=== PATIENT | female | born 1960 | race African-American/Black ===

== ENCOUNTER 2017-07-22 14:10 | Inpatient (IN) | payer OTHER ==
[~2017-07-22] VITALS: Ht 160 cm; Wt 91.5 kg
[~2017-07-22 14:10] MED LIST: GUAFACSF5L PO; HYDR-3965 PO; LISI-662 PO; METF500T4 PO; OMEP20 PO; RIVA15T PO; RIVA20TA PO
[2017-07-22] MEDS ORDERED: SODIUM CHLORIDE 0.9% 1,000 ML IV ONE ×3 (14:45→22:49)
[2017-07-22] MEDS ORDERED: ONDANSETRON HCL 4 MG/2 ML VIAL IVP ONE (14:45)
[2017-07-22] MEDS ORDERED: MORPHINE SULFATE 4 MG/ML SYRINGE IVP ONE ×2 (14:45→18:15)
[2017-07-22] MEDS ORDERED: BARIUM SULFATE 0.1% SUSPENSION 450 ML BOTTLE PO ONE (15:00)
[2017-07-22 16:20] LABS: EOSINOPHILS % (AUTO) 0 % (1.0-6.0); HEMATOCRIT 50.7 % (36-46); HEMOGLOBIN 16.7 g/dL (12.0-16.0); LYMPHOCYTES # (AUTO) 0.7 K/uL (1.0-4.8); LYMPHOCYTES % (AUTO) 4.9 % (22.0-44.0); MEAN CORPUSCULAR HEMOGLOBIN 28.4 pg (26.0-34.0); MEAN CORPUSCULAR VOLUME 86 fL (80-100); MONOCYTES # (AUTO) 0.8 K/uL (0.1-1.0); MONOCYTES % (AUTO) 5.1 % (2.0-9.0); NEUTROPHILS # (AUTO) 13.8 K/uL (1.8-7.7); RED CELL DISTRIBUTION WIDTH 15.7 % (11.5-14.5); WHITE BLOOD COUNT (AUTO) 15.3 K/uL (4.5-11.0)
[2017-07-22 16:22] LABS: ANION GAP 9 mmol/L (8-16); CALCIUM, TOTAL 9.1 mg/dL (8.8-10.5); CARBON DIOXIDE 33 mmol/L (22-29); CHLORIDE 97 mmol/L (98-107); CREATININE 0.96 mg/dL (0.60-1.30); GLOMERULAR FILTR. RATE CALC > 60 mL/min (>60); POTASSIUM 3.8 mmol/L (3.5-5.1); SODIUM SERUM 139 mmol/L (136-145); UREA NITROGEN, BLOOD 19 mg/dL (7-18)
[2017-07-22 16:28] LABS: ALANINE AMINOTRANSFERASE 46 U/L (12-78); ALBUMIN 3.5 g/dL (3.4-5.0); ASPARTATE AMINOTRANSFERASE 16 U/L (15-37); BILIRUBIN,TOTAL 0.5 mg/dL (0.1-1.0); TOTAL PROTEIN, SERUM 8.6 g/dL (6.4-8.2)
[2017-07-22 16:30] LABS: LACTIC ACID 1.6 mmol/L (0.4-2.0)
[2017-07-22 16:53] LABS: INR 1.1 (0.9-1.1); PROTHROMBIN TIME 11.3 SEC (9.4-11.6)
[2017-07-22] MEDS ORDERED: ONDANSETRON HCL 4 MG/2 ML VIAL IVP PRN (18:45)
[2017-07-22] MEDS ORDERED: 0.9% SODIUM CHLORIDE 10 ML SYRINGE IVP PRN (18:45)
[2017-07-22] MEDS ORDERED: ACETAMINOPHEN 325 MG TABLET PO PRN ×2 (18:45→20:30)
[2017-07-22 19:04] LABS: PLATELET COUNT (AUTO) 360 K/uL (150-450)
[2017-07-22 20:04] VITALS: BP 133/97
[2017-07-22] MEDS ORDERED: ZOLPIDEM TARTRATE 5 MG TABLET PO PRN (20:30)
[2017-07-22] MEDS ORDERED: ALBUTEROL SULFATE 2.5 MG/0.5 ML NEB SOLUTION NEB PRN (20:30)
[2017-07-22] MEDS ORDERED: BISACODYL 10 MG RECTAL RECTAL SUPPOSITORY PR PRN (20:30)
[2017-07-22] MEDS ORDERED: MAGNESIUM HYDROXIDE SUSPENSION 30 ML UDCUP PO PRN (20:30)
[2017-07-22] MEDS ORDERED: IPRATROPIUM BROMIDE 0.5 MG/2.5 ML NEB SOLUTION NEB PRN (20:30)
[2017-07-22] MEDS: DOCUSATE SODIUM 100 MG CAPSULE PO SCH (21:00)
[2017-07-22] MEDS: MORPHINE SULFATE 2 MG/ML SYRINGE IVP PRN (21:01)
[2017-07-22] MEDS ORDERED: DEXTROSE 50%-WATER 25 GM/50 ML SYRINGE IVP PRN (21:15)
[2017-07-22] MEDS ORDERED: RINGERS SOLUTION,LACTATED 0 ML IV ONE (22:05)
[2017-07-22] MEDS ORDERED: GUM MASTIC/STORAX/MSAL/ALCOHOL LIQUID 0.67 ML VIAL TP ONE (22:05)
[2017-07-22] MEDS ORDERED: BUPIVACAINE 0.25%/EPI 1:200,000/PF 10 ML VIAL ONE ×2 (22:05)
[2017-07-22 22:32] LABS: GLUCOSE COMMENT 1 Doctor Notified; GLUCOSE,POINT OF CARE 117 MG/DL (70-110)
[2017-07-22] MEDS ORDERED: BACITRACIN 50,000 UNITS/VIAL ONE (22:49)
[2017-07-22] MEDS ORDERED: SODIUM CHLORIDE 0.9% 10 ML ONE (22:49)
[2017-07-22] MEDS ORDERED: HYDROmorphone 2 MG/ML SYRINGE IVP PRN (23:00)
[2017-07-22] MEDS ORDERED: MEPERIDINE-PF 25 MG/ML SYRINGE IVP PRN (23:00)
[2017-07-22] MEDS ORDERED: FentaNYL CITRATE-PF 100 MCG/2 ML VIAL IVP PRN (23:00)
[2017-07-23] VITALS (7 sets, daily range): BP systolic 110–124; BP diastolic 67–83
[2017-07-23] MEDS ORDERED: HEPARIN SODIUM,PORCINE 5,000 UNITS/ML VIAL SQ SCH
[2017-07-23] MEDS: MORPHINE SULFATE 2 MG/ML SYRINGE IVP PRN ×6 (03:35→20:57)
[2017-07-23 06:03] LABS: GLUCOSE,POINT OF CARE 123 MG/DL (70-110)
[2017-07-23] MEDS ORDERED: PNEUMOCOCCAL VACCINE POLYVALENT 0.5 ML VIAL [PPSV23] IM ONE (07:00)
[2017-07-23 07:03] LABS: BASOPHILS % (AUTO) 0.1 % (0.0-2.0); EOSINOPHILS % (AUTO) 0.1 % (1.0-6.0); HEMATOCRIT 47.1 % (36-46); HEMOGLOBIN 15.5 g/dL (12.0-16.0); LYMPHOCYTES # (AUTO) 0.8 K/uL (1.0-4.8); LYMPHOCYTES % (AUTO) 8.7 % (22.0-44.0); MEAN CORPUSCULAR HEMOGLOBIN 28.5 pg (26.0-34.0); MEAN CORPUSCULAR HGB CONC 32.9 G/dL (31.0-37.0); MEAN CORPUSCULAR VOLUME 87 fL (80-100); MONOCYTES # (AUTO) 0.7 K/uL (0.1-1.0); MONOCYTES % (AUTO) 7.5 % (2.0-9.0); NEUTROPHILS % (AUTO) 83.6 % (40.0-70.0); RED BLOOD CELL COUNT(AUTO) 5.43 MIL/uL (4.00-5.20); RED CELL DISTRIBUTION WIDTH 15.1 % (11.5-14.5)
[2017-07-23 07:25] LABS: ALANINE AMINOTRANSFERASE 37 U/L (12-78); ANION GAP 9 mmol/L (8-16); ASPARTATE AMINOTRANSFERASE 16 U/L (15-37); BILIRUBIN,TOTAL 0.7 mg/dL (0.1-1.0); CALCIUM, TOTAL 8.2 mg/dL (8.8-10.5); CARBON DIOXIDE 31 mmol/L (22-29); CHLORIDE 101 mmol/L (98-107); CREATININE 1.09 mg/dL (0.60-1.30); GLOMERULAR FILTR. RATE CALC > 60 mL/min (>60); POTASSIUM 3.8 mmol/L (3.5-5.1); SODIUM SERUM 141 mmol/L (136-145); TOTAL PROTEIN, SERUM 7.3 g/dL (6.4-8.2); UREA NITROGEN, BLOOD 25 mg/dL (7-18)
[2017-07-23 07:41] LABS: WHITE BLOOD COUNT (AUTO) 17.4 K/uL (4.5-11.0)
[2017-07-23] MEDS: OXYGEN THERAPY IH SCH ×2 (08:00→20:58)
[2017-07-23 08:39] LABS: PLATELET COUNT (AUTO) 273 K/uL (150-450)
[2017-07-23 08:40] LABS: RBC MORPHOLOGY COMMENT NORMAL RBC MORPH
[2017-07-23] MEDS: PANTOPRAZOLE SODIUM 40 MG/VIAL IVP SCH (08:46)
[2017-07-23] MEDS ORDERED: SODIUM CHLORIDE 0.9% 1,000 ML IV ONE (12:18)
[2017-07-23 19:03] LABS: GLUCOSE,POINT OF CARE 112 MG/DL (70-110)
[2017-07-23 19:07] LABS: GLUCOSE,POINT OF CARE 115 MG/DL (70-110)
[2017-07-23] MEDS: ONDANSETRON HCL 4 MG/2 ML VIAL IVP PRN (20:06)
[2017-07-23] MEDS: DOCUSATE SODIUM 100 MG CAPSULE PO SCH (20:59)
[2017-07-23] MEDS: INSULIN ASPART 100 UNITS/ML SQ PRN (23:41)
[2017-07-23 23:47] LABS: GLUCOSE,POINT OF CARE 118 MG/DL (70-110)
[2017-07-24] VITALS (8 sets, daily range): BP systolic 115–129; BP diastolic 64–92
[2017-07-24] MEDS: MORPHINE SULFATE 2 MG/ML SYRINGE IVP PRN ×5 (03:39→20:39)
[2017-07-24] MEDS: ONDANSETRON HCL 4 MG/2 ML VIAL IVP PRN ×2 (03:46→09:58)
[2017-07-24] MEDS ORDERED: GLYCOPYRROLATE 0.2 MG/ML VIAL IM ONE (05:26)
[2017-07-24] MEDS ORDERED: NEOSTIGMINE METHYLSULFATE 1 MG/ML 10 ML VIAL IVP ONE (05:26)
[2017-07-24] MEDS ORDERED: CefoTEtan DISODIUM 1 GM/VIAL IVP ONE (05:26)
[2017-07-24] MEDS ORDERED: METOCLOPRAMIDE HCL 5 MG/ML 2 ML VIAL IVP ONE (05:26)
[2017-07-24] MEDS ORDERED: ONDANSETRON HCL 4 MG/2 ML VIAL IVP ONE (05:26)
[2017-07-24] MEDS ORDERED: PROPOFOL 1% 20 ML VIAL IVP ONE (05:26)
[2017-07-24] MEDS ORDERED: KETOROLAC TROMETHAMINE 60 MG/2 ML VIAL IM ONE (05:26)
[2017-07-24] MEDS ORDERED: LIDOCAINE HCL/PF 2% 5 ML VIAL IM ONE (05:26)
[2017-07-24] MEDS ORDERED: FentaNYL CITRATE-PF 100 MCG/2 ML VIAL IVP ONE (05:30)
[2017-07-24] MEDS ORDERED: MIDAZOLAM HCL 2 MG/2 ML VIAL IVP ONE (05:30)
[2017-07-24 05:55] LABS: BASOPHILS % (AUTO) 0.1 % (0.0-2.0); EOSINOPHILS % (AUTO) 0.2 % (1.0-6.0); HEMATOCRIT 45.6 % (36-46); LYMPHOCYTES # (AUTO) 1.1 K/uL (1.0-4.8); LYMPHOCYTES % (AUTO) 10.1 % (22.0-44.0); MEAN CORPUSCULAR HEMOGLOBIN 28.4 pg (26.0-34.0); MEAN CORPUSCULAR HGB CONC 32.8 G/dL (31.0-37.0); MEAN CORPUSCULAR VOLUME 86 fL (80-100); MONOCYTES # (AUTO) 0.9 K/uL (0.1-1.0); MONOCYTES % (AUTO) 7.6 % (2.0-9.0); NEUTROPHILS # (AUTO) 9.3 K/uL (1.8-7.7); RED BLOOD CELL COUNT(AUTO) 5.28 MIL/uL (4.00-5.20); RED CELL DISTRIBUTION WIDTH 15.1 % (11.5-14.5); WHITE BLOOD COUNT (AUTO) 11.4 K/uL (4.5-11.0)
[2017-07-24 06:07] LABS: ALANINE AMINOTRANSFERASE 33 U/L (12-78); ALBUMIN 2.8 g/dL (3.4-5.0); ANION GAP 1 mmol/L (8-16); ASPARTATE AMINOTRANSFERASE 11 U/L (15-37); BILIRUBIN,TOTAL 0.7 mg/dL (0.1-1.0); CALCIUM, TOTAL 8.7 mg/dL (8.8-10.5); CARBON DIOXIDE 35 mmol/L (22-29); CHLORIDE 100 mmol/L (98-107); CREATININE 0.83 mg/dL (0.60-1.30); GLOMERULAR FILTR. RATE CALC > 60 mL/min (>60); POTASSIUM 3.7 mmol/L (3.5-5.1); SODIUM SERUM 136 mmol/L (136-145); TOTAL PROTEIN, SERUM 7.3 g/dL (6.4-8.2); UREA NITROGEN, BLOOD 18 mg/dL (7-18)
[2017-07-24 07:02] LABS: GLUCOSE,POINT OF CARE 109 MG/DL (70-110)
[2017-07-24 07:57] LABS: PLATELET COUNT (AUTO) 313 K/uL (150-450)
[2017-07-24] MEDS: OXYGEN THERAPY IH SCH ×2 (08:00→20:00)
[2017-07-24] MEDS: DOCUSATE SODIUM 100 MG CAPSULE PO SCH ×2 (09:50→20:08)
[2017-07-24] MEDS: PANTOPRAZOLE SODIUM 40 MG/VIAL IVP SCH (09:50)
[2017-07-24 12:08] LABS: GLUCOSE,POINT OF CARE 127 MG/DL (70-110)
[2017-07-24] MEDS: LevETIRAcetam 500 MG in DEXTROSE 5%-WATER 100 ML IV SCH (16:07)
[2017-07-25] VITALS (7 sets, daily range): BP systolic 113–134; BP diastolic 74–79
[2017-07-25] MEDS: MORPHINE SULFATE 2 MG/ML SYRINGE IVP PRN ×5 (02:33→23:12)
[2017-07-25] MEDS: LevETIRAcetam 500 MG in DEXTROSE 5%-WATER 100 ML IV SCH ×2 (02:33→14:58)
[2017-07-25] MEDS: ONDANSETRON HCL 4 MG/2 ML VIAL IVP PRN ×2 (02:38→09:24)
[2017-07-25 06:05] LABS: BASOPHILS # (AUTO) 0.02 K/uL (0.00-0.20); BASOPHILS % (AUTO) 0.2 % (0.0-2.0); EOSINOPHILS # (AUTO) 0.03 K/uL (0.00-0.70); EOSINOPHILS % (AUTO) 0.38 % (1.0-6.0); HEMATOCRIT 47.4 % (36-46); HEMOGLOBIN 15.2 g/dL (12.0-16.0); LYMPHOCYTES # (AUTO) 0.9 K/uL (1.0-4.8); LYMPHOCYTES % (AUTO) 11.1 % (22.0-44.0); MEAN CORPUSCULAR HEMOGLOBIN 27.9 pg (26.0-34.0); MEAN CORPUSCULAR HGB CONC 32.1 G/dL (31.0-37.0); MEAN CORPUSCULAR VOLUME 87 fL (80-100); MONOCYTES # (AUTO) 0.9 K/uL (0.1-1.0); MONOCYTES % (AUTO) 11.5 % (2.0-9.0); NEUTROPHILS # (AUTO) 6.3 K/uL (1.8-7.7); NEUTROPHILS % (AUTO) 76.9 % (40.0-70.0); RED BLOOD CELL COUNT(AUTO) 5.45 MIL/uL (4.00-5.20); RED CELL DISTRIBUTION WIDTH 15.3 % (11.5-14.5); WHITE BLOOD COUNT (AUTO) 8.2 K/uL (4.5-11.0)
[2017-07-25 06:17] LABS: ALANINE AMINOTRANSFERASE 27 U/L (12-78); ALBUMIN 2.5 g/dL (3.4-5.0); ANION GAP 4 mmol/L (8-16); ASPARTATE AMINOTRANSFERASE 15 U/L (15-37); BILIRUBIN,TOTAL 0.8 mg/dL (0.1-1.0); CARBON DIOXIDE 37 mmol/L (22-29); CHLORIDE 97 mmol/L (98-107); CREATININE 1.02 mg/dL (0.60-1.30); GLOMERULAR FILTR. RATE CALC > 60 mL/min (>60); SODIUM SERUM 138 mmol/L (136-145); TOTAL PROTEIN, SERUM 7.5 g/dL (6.4-8.2); UREA NITROGEN, BLOOD 22 mg/dL (7-18)
[2017-07-25] MEDS ORDERED: SODIUM CHLORIDE 0.9% 250 ML IV ONE (06:23)
[2017-07-25 07:05] LABS: PLATELET COUNT (AUTO) 294 K/uL (150-450)
[2017-07-25 07:18] LABS: GLUCOSE,POINT OF CARE 165 MG/DL (70-110)
[2017-07-25 07:18] LABS: GLUCOSE,POINT OF CARE 136 MG/DL (70-110)
[2017-07-25 07:18] LABS: GLUCOSE,POINT OF CARE 141 MG/DL (70-110)
[2017-07-25] MEDS: PANTOPRAZOLE SODIUM 40 MG/VIAL IVP SCH (08:02)
[2017-07-25] MEDS: OXYGEN THERAPY IH SCH ×2 (08:09→21:26)
[2017-07-25] MEDS: DOCUSATE SODIUM 100 MG CAPSULE PO SCH ×2 (08:13→21:00)
[2017-07-25 11:48] LABS: GLUCOSE,POINT OF CARE 202 MG/DL (70-110)
[2017-07-25] MEDS: INSULIN ASPART 100 UNITS/ML SQ PRN ×2 (12:05→18:05)
[2017-07-25 16:02] LABS: GLUCOSE,POINT OF CARE 122 MG/DL (70-110)
[2017-07-26] MEDS: ONDANSETRON HCL 4 MG/2 ML VIAL IVP PRN ×4 (01:38→23:28)
[2017-07-26] MEDS: LevETIRAcetam 500 MG in DEXTROSE 5%-WATER 100 ML IV SCH ×2 (01:38→14:46)
[2017-07-26 04:02] VITALS: BP 123/77
[2017-07-26] MEDS: MORPHINE SULFATE 2 MG/ML SYRINGE IVP PRN ×6 (04:40→23:28)
[2017-07-26 06:14] LABS: ALANINE AMINOTRANSFERASE 31 U/L (12-78); ALBUMIN 2.5 g/dL (3.4-5.0); ANION GAP 4 mmol/L (8-16); ASPARTATE AMINOTRANSFERASE 14 U/L (15-37); BILIRUBIN,TOTAL 0.6 mg/dL (0.1-1.0); CALCIUM, TOTAL 8.9 mg/dL (8.8-10.5); CARBON DIOXIDE 38 mmol/L (22-29); CHLORIDE 94 mmol/L (98-107); GLOMERULAR FILTR. RATE CALC > 60 mL/min (>60); POTASSIUM 3.6 mmol/L (3.5-5.1); SODIUM SERUM 136 mmol/L (136-145); TOTAL PROTEIN, SERUM 7.8 g/dL (6.4-8.2); UREA NITROGEN, BLOOD 25 mg/dL (7-18)
[2017-07-26 07:06] LABS: EOSINOPHILS % (AUTO) 0.87 % (1.0-6.0); HEMATOCRIT 45.6 % (36-46); HEMOGLOBIN 14.6 g/dL (12.0-16.0); LYMPHOCYTES # (AUTO) 1.2 K/uL (1.0-4.8); LYMPHOCYTES % (AUTO) 11.1 % (22.0-44.0); MEAN CORPUSCULAR HEMOGLOBIN 27.8 pg (26.0-34.0); MEAN CORPUSCULAR HGB CONC 32.1 G/dL (31.0-37.0); MEAN CORPUSCULAR VOLUME 87 fL (80-100); MONOCYTES # (AUTO) 1.3 K/uL (0.1-1.0); MONOCYTES % (AUTO) 11.7 % (2.0-9.0); NEUTROPHILS # (AUTO) 8.4 K/uL (1.8-7.7); NEUTROPHILS % (AUTO) 76.3 % (40.0-70.0); PLATELET COUNT (AUTO) 239 K/uL (150-450); RED BLOOD CELL COUNT(AUTO) 5.26 MIL/uL (4.00-5.20); RED CELL DISTRIBUTION WIDTH 14.9 % (11.5-14.5); WHITE BLOOD COUNT (AUTO) 12.9 K/uL (4.5-11.0)
[2017-07-26 07:20] VITALS: BP 131/89
[2017-07-26 08:29] LABS: RBC MORPHOLOGY COMMENT ABNORMAL RBC MORPH
[2017-07-26] MEDS: PANTOPRAZOLE SODIUM 40 MG/VIAL IVP SCH (08:33)
[2017-07-26] MEDS: DOCUSATE SODIUM 100 MG CAPSULE PO SCH ×2 (08:34→19:37)
[2017-07-26] MEDS: OXYGEN THERAPY IH SCH ×2 (08:44→19:36)
[2017-07-26 11:29] VITALS: BP 114/65
[2017-07-26] MEDS: INSULIN ASPART 100 UNITS/ML SQ PRN (12:28)
[2017-07-26 16:20] VITALS: BP 115/73
[2017-07-26 19:52] VITALS: BP 118/80
[2017-07-27] VITALS (8 sets, daily range): BP systolic 93–136; BP diastolic 56–89
[2017-07-27] MEDS: MORPHINE SULFATE 2 MG/ML SYRINGE IVP PRN ×6 (02:57→20:35)
[2017-07-27] MEDS: LevETIRAcetam 500 MG in DEXTROSE 5%-WATER 100 ML IV SCH ×2 (03:00→13:21)
[2017-07-27] MEDS: ONDANSETRON HCL 4 MG/2 ML VIAL IVP PRN ×3 (06:05→17:47)
[2017-07-27] MEDS: INSULIN ASPART 100 UNITS/ML SQ PRN (06:06)
[2017-07-27 07:12] LABS: BASOPHILS % (AUTO) 0.1 % (0.0-2.0); EOSINOPHILS % (AUTO) 0.9 % (1.0-6.0); HEMATOCRIT 47.2 % (36-46); HEMOGLOBIN 15.6 g/dL (12.0-16.0); LYMPHOCYTES # (AUTO) 1.6 K/uL (1.0-4.8); LYMPHOCYTES % (AUTO) 13.1 % (22.0-44.0); MEAN CORPUSCULAR HEMOGLOBIN 28.3 pg (26.0-34.0); MEAN CORPUSCULAR HGB CONC 33.1 G/dL (31.0-37.0); MEAN CORPUSCULAR VOLUME 86 fL (80-100); MONOCYTES # (AUTO) 1.4 K/uL (0.1-1.0); MONOCYTES % (AUTO) 11.6 % (2.0-9.0); NEUTROPHILS # (AUTO) 9.2 K/uL (1.8-7.7); NEUTROPHILS % (AUTO) 74.3 % (40.0-70.0); RED BLOOD CELL COUNT(AUTO) 5.51 MIL/uL (4.00-5.20); WHITE BLOOD COUNT (AUTO) 12.4 K/uL (4.5-11.0)
[2017-07-27 07:16] LABS: ALANINE AMINOTRANSFERASE 72 U/L (12-78); ALBUMIN 2.8 g/dL (3.4-5.0); ANION GAP 4 mmol/L (8-16); ASPARTATE AMINOTRANSFERASE 38 U/L (15-37); BILIRUBIN,TOTAL 0.6 mg/dL (0.1-1.0); CALCIUM, TOTAL 9.2 mg/dL (8.8-10.5); CARBON DIOXIDE 39 mmol/L (22-29); CHLORIDE 91 mmol/L (98-107); CREATININE 1.08 mg/dL (0.60-1.30); GLOMERULAR FILTR. RATE CALC > 60 mL/min (>60); POTASSIUM 3.6 mmol/L (3.5-5.1); SODIUM SERUM 134 mmol/L (136-145); UREA NITROGEN, BLOOD 29 mg/dL (7-18)
[2017-07-27] MEDS: PANTOPRAZOLE SODIUM 40 MG/VIAL IVP SCH (08:15)
[2017-07-27] MEDS: DOCUSATE SODIUM 100 MG CAPSULE PO SCH ×2 (08:15→20:32)
[2017-07-27 09:46] LABS: PLATELET COUNT (AUTO) 253 K/uL (150-450)
[2017-07-27 18:18] LABS: GLUCOSE,POINT OF CARE 143 MG/DL (70-110)
[2017-07-27 18:18] LABS: GLUCOSE,POINT OF CARE 147 MG/DL (70-110)
[2017-07-27 18:18] LABS: GLUCOSE,POINT OF CARE 129 MG/DL (70-110)
[2017-07-27 18:18] LABS: GLUCOSE,POINT OF CARE 138 MG/DL (70-110)
[2017-07-27 19:08] LABS: GLUCOSE,POINT OF CARE 125 MG/DL (70-110)
[2017-07-27 19:08] LABS: GLUCOSE COMMENT 1 Received Meds; GLUCOSE,POINT OF CARE 148 MG/DL (70-110)
[2017-07-27 19:08] LABS: GLUCOSE COMMENT 1 Received Meds; GLUCOSE,POINT OF CARE 154 MG/DL (70-110)
[2017-07-27] MEDS: OXYGEN THERAPY IH SCH (20:36)
[2017-07-28] VITALS (7 sets, daily range): BP systolic 110–131; BP diastolic 62–91
[2017-07-28] MEDS: ONDANSETRON HCL 4 MG/2 ML VIAL IVP PRN ×2 (01:00→19:22)
[2017-07-28] MEDS: MORPHINE SULFATE 2 MG/ML SYRINGE IVP PRN ×3 (01:01→21:06)
[2017-07-28] MEDS: LevETIRAcetam 500 MG in DEXTROSE 5%-WATER 100 ML IV SCH ×2 (01:57→13:36)
[2017-07-28] MEDS: OXYGEN THERAPY IH SCH ×3 (01:59→20:06)
[2017-07-28 06:41] LABS: BASOPHILS # (AUTO) 0.06 K/uL (0.00-0.20); BASOPHILS % (AUTO) 0.4 % (0.0-2.0); EOSINOPHILS # (AUTO) 0.03 K/uL (0.00-0.70); EOSINOPHILS % (AUTO) 0.23 % (1.0-6.0); HEMATOCRIT 52.2 % (36-46); HEMOGLOBIN 16.8 g/dL (12.0-16.0); LYMPHOCYTES # (AUTO) 2.2 K/uL (1.0-4.8); LYMPHOCYTES % (AUTO) 16.3 % (22.0-44.0); MEAN CORPUSCULAR HEMOGLOBIN 27.8 pg (26.0-34.0); MEAN CORPUSCULAR HGB CONC 32.1 G/dL (31.0-37.0); MEAN CORPUSCULAR VOLUME 87 fL (80-100); MONOCYTES # (AUTO) 1.5 K/uL (0.1-1.0); MONOCYTES % (AUTO) 11.2 % (2.0-9.0); NEUTROPHILS # (AUTO) 9.5 K/uL (1.8-7.7); NEUTROPHILS % (AUTO) 71.9 % (40.0-70.0); RED BLOOD CELL COUNT(AUTO) 6.02 MIL/uL (4.00-5.20); RED CELL DISTRIBUTION WIDTH 14.9 % (11.5-14.5)
[2017-07-28 06:51] LABS: ALBUMIN 2.7 g/dL (3.4-5.0); BILIRUBIN,TOTAL 0.9 mg/dL (0.1-1.0); CALCIUM, TOTAL 8.9 mg/dL (8.8-10.5); CREATININE 1.58 mg/dL (0.60-1.30); POTASSIUM 3.2 mmol/L (3.5-5.1); TOTAL PROTEIN, SERUM 8.2 g/dL (6.4-8.2)
[2017-07-28 07:01] LABS: PLATELET COUNT (AUTO) 298 K/uL (150-450)
[2017-07-28] MEDS ORDERED: POTASSIUM CHLORIDE 10% 40 MEQ/30 ML LIQUID UDCUP PO ONE (07:30)
[2017-07-28] MEDS ORDERED: DEXTROSE 5%-0.9% SODIUM CHL 1,000 ML IV SCH (07:30)
[2017-07-28] MEDS ORDERED: POTASSIUM CHL 10 MEQ/WATER 50 ML IV ONE (07:30)
[2017-07-28] MEDS: DOCUSATE SODIUM 100 MG CAPSULE PO SCH ×2 (09:00→20:06)
[2017-07-28] MEDS: PANTOPRAZOLE SODIUM 40 MG/VIAL IVP SCH (09:01)
[2017-07-28] MEDS: LACTULOSE 20 GM/30 ML SOLUTION UDCUP PO SCH ×2 (09:02→20:05)
[2017-07-28] MEDS: BISACODYL 10 MG RECTAL RECTAL SUPPOSITORY PR SCH (09:04)
[2017-07-28] MEDS: HEPARIN SODIUM,PORCINE 5,000 UNITS/ML VIAL SQ SCH ×2 (09:05→16:00)
[2017-07-28] MEDS: SERTRALINE HCL 50 MG TABLET PO SCH (10:30)
[2017-07-28] MEDS: POTASSIUM CHL 20 MEQ/D5-NS 1,000 ML IV SCH ×2 (11:39→20:07)
[2017-07-28] MEDS: PIPERACILLIN SODIUM/TAZOBACTAM 2.25 GM in DEXTROSE 5%-WATER 50 ML IV SCH ×2 (14:51→20:06)
[2017-07-28 15:48] LABS: ABG A-A DIFF O2 89.8 mmHg (10-20.0); ABG BASE EXCESS 24.5 mmol/L (-2.0-3.0); ABG HCO3 44.1 mmol/L (22.0-26.0); ABG PCO2 66 mmHg (35-45); ABG PH 7.481 (7.35-7.450); TEMPERATURE, FAHRENHEIT, BG 98.6 FAHREN (96.0-98.6)
[2017-07-28 15:49] LABS: ALLEN TEST, BLOOD GAS Positive
[2017-07-28 19:58] LABS: GLUCOSE,POINT OF CARE 178 MG/DL (70-110)
[2017-07-28 20:02] LABS: GLUCOSE COMMENT 1 Received Meds; GLUCOSE,POINT OF CARE 155 MG/DL (70-110)
[2017-07-28] MEDS: TraZODone HCL 50 MG TABLET PO SCH (20:06)
[2017-07-29] VITALS (7 sets, daily range): BP systolic 108–124; BP diastolic 61–79
[2017-07-29] MEDS: LevETIRAcetam 500 MG in DEXTROSE 5%-WATER 100 ML IV SCH ×2 (01:14→14:03)
[2017-07-29] MEDS: HEPARIN SODIUM,PORCINE 5,000 UNITS/ML VIAL SQ SCH ×4 (01:14→23:12)
[2017-07-29] MEDS: POTASSIUM CHL 20 MEQ/D5-NS 1,000 ML IV SCH (01:15)
[2017-07-29] MEDS: PIPERACILLIN SODIUM/TAZOBACTAM 2.25 GM in DEXTROSE 5%-WATER 50 ML IV SCH ×2 (01:54→09:01)
[2017-07-29] MEDS: MORPHINE SULFATE 2 MG/ML SYRINGE IVP PRN ×5 (06:35→23:14)
[2017-07-29] MEDS: ONDANSETRON HCL 4 MG/2 ML VIAL IVP PRN (06:35)
[2017-07-29 08:16] LABS: BASOPHILS % (AUTO) 0.3 % (0.0-2.0); EOSINOPHILS % (AUTO) 1.1 % (1.0-6.0); HEMATOCRIT 45.1 % (36-46); HEMOGLOBIN 14.9 g/dL (12.0-16.0); LYMPHOCYTES % (AUTO) 9.9 % (22.0-44.0); MEAN CORPUSCULAR HGB CONC 33.1 G/dL (31.0-37.0); MEAN CORPUSCULAR VOLUME 85 fL (80-100); MONOCYTES # (AUTO) 0.6 K/uL (0.1-1.0); MONOCYTES % (AUTO) 5.5 % (2.0-9.0); NEUTROPHILS # (AUTO) 8.6 K/uL (1.8-7.7); NEUTROPHILS % (AUTO) 83.2 % (40.0-70.0); RED BLOOD CELL COUNT(AUTO) 5.32 MIL/uL (4.00-5.20); RED CELL DISTRIBUTION WIDTH 14.9 % (11.5-14.5); WHITE BLOOD COUNT (AUTO) 10.4 K/uL (4.5-11.0)
[2017-07-29 08:30] LABS: ALANINE AMINOTRANSFERASE 138 U/L (12-78); ALBUMIN 2.3 g/dL (3.4-5.0); ANION GAP 2 mmol/L (8-16); ASPARTATE AMINOTRANSFERASE 39 U/L (15-37); BILIRUBIN,TOTAL 0.7 mg/dL (0.1-1.0); CALCIUM, TOTAL 7.8 mg/dL (8.8-10.5); CHLORIDE 87 mmol/L (98-107); CREATININE 0.99 mg/dL (0.60-1.30); GLOMERULAR FILTR. RATE CALC > 60 mL/min (>60); SODIUM SERUM 131 mmol/L (136-145); TOTAL PROTEIN, SERUM 6.6 g/dL (6.4-8.2); UREA NITROGEN, BLOOD 42 mg/dL (7-18)
[2017-07-29 08:34] LABS: CARBON DIOXIDE 42 mmol/L (22-29)
[2017-07-29] MEDS: OXYGEN THERAPY IH SCH ×2 (08:59→19:39)
[2017-07-29] MEDS: DOCUSATE SODIUM 100 MG CAPSULE PO SCH ×2 (09:00→19:38)
[2017-07-29] MEDS: LACTULOSE 20 GM/30 ML SOLUTION UDCUP PO SCH ×2 (09:00→19:38)
[2017-07-29] MEDS: SERTRALINE HCL 50 MG TABLET PO SCH (09:00)
[2017-07-29] MEDS: PANTOPRAZOLE SODIUM 40 MG/VIAL IVP SCH (09:00)
[2017-07-29 09:12] LABS: PLATELET COUNT (AUTO) 330 K/uL (150-450)
[2017-07-29] MEDS: POTASSIUM CHLORIDE 40 MEQ in SODIUM CHLORIDE 0.9% 1,000 ML IV SCH (10:40)
[2017-07-29] MEDS ORDERED: KETO5DRO6 OS (13:06)
[2017-07-29] MEDS ORDERED: [UNRECOGNIZED DRUG - CODE] OS (13:06)
[2017-07-29] MEDS: PIPERACILLIN/TAZO 3.375 GM/D5W 50 ML IV SCH ×2 (14:10→19:38)
[2017-07-29] MEDS: TraZODone HCL 50 MG TABLET PO SCH (19:38)
[2017-07-29] MEDS ORDERED: [UNRECOGNIZED DRUG - OTHER] OS SCH (21:00)
[2017-07-29] MEDS: MINERAL OIL/PETROLATUM,WHITE PF 3.5 GM OPHTHALMIC OINTMENT OS SCH (23:12)
[2017-07-30] VITALS (7 sets, daily range): BP systolic 112–133; BP diastolic 60–77
[2017-07-30] MEDS: PIPERACILLIN/TAZO 3.375 GM/D5W 50 ML IV SCH ×4 (03:45→21:33)
[2017-07-30] MEDS: LevETIRAcetam 500 MG in DEXTROSE 5%-WATER 100 ML IV SCH ×2 (03:45→15:04)
[2017-07-30] MEDS: MORPHINE SULFATE 2 MG/ML SYRINGE IVP PRN ×4 (03:50→14:12)
[2017-07-30] MEDS: POTASSIUM CHLORIDE 40 MEQ in SODIUM CHLORIDE 0.9% 1,000 ML IV SCH (06:02)
[2017-07-30] MEDS: OXYGEN THERAPY IH SCH ×2 (08:35→21:42)
[2017-07-30] MEDS: LACTULOSE 20 GM/30 ML SOLUTION UDCUP PO SCH ×3 (08:35→21:00)
[2017-07-30] MEDS: HEPARIN SODIUM,PORCINE 5,000 UNITS/ML VIAL SQ SCH ×2 (08:36→16:03)
[2017-07-30] MEDS: SERTRALINE HCL 50 MG TABLET PO SCH (08:36)
[2017-07-30] MEDS: PANTOPRAZOLE SODIUM 40 MG/VIAL IVP SCH (08:36)
[2017-07-30] MEDS: MINERAL OIL/PETROLATUM,WHITE PF 3.5 GM OPHTHALMIC OINTMENT OS SCH ×3 (08:36→20:50)
[2017-07-30] MEDS: DOCUSATE SODIUM 100 MG CAPSULE PO SCH ×2 (08:36→20:51)
[2017-07-30] MEDS: BISACODYL 10 MG RECTAL RECTAL SUPPOSITORY PR SCH (08:36)
[2017-07-30] MEDS: ONDANSETRON HCL 4 MG/2 ML VIAL IVP PRN ×2 (11:19→21:33)
[2017-07-30 14:20] LABS: ANION GAP 0 mmol/L (8-16); CALCIUM, TOTAL 8.2 mg/dL (8.8-10.5); CARBON DIOXIDE 37 mmol/L (22-29); CHLORIDE 95 mmol/L (98-107); CREATININE 0.88 mg/dL (0.60-1.30); GLOMERULAR FILTR. RATE CALC > 60 mL/min (>60); POTASSIUM 4.4 mmol/L (3.5-5.1); SODIUM SERUM 132 mmol/L (136-145); UREA NITROGEN, BLOOD 16 mg/dL (7-18)
[2017-07-30] MEDS: METOCLOPRAMIDE HCL 5 MG/ML 2 ML VIAL IVP SCH (17:34)
[2017-07-30] MEDS: TraZODone HCL 50 MG TABLET PO SCH (20:51)
[2017-07-30 21:07] LABS: GLUCOSE,POINT OF CARE 108 MG/DL (70-110)
[2017-07-30] MEDS ORDERED: SODIUM CHLORIDE 0.9% 250 ML IV ONE (21:50)
[2017-07-31] MEDS: METOCLOPRAMIDE HCL 5 MG/ML 2 ML VIAL IVP SCH ×4 (00:45→12:39)
[2017-07-31] MEDS: HEPARIN SODIUM,PORCINE 5,000 UNITS/ML VIAL SQ SCH ×3 (00:46→16:46)
[2017-07-31] MEDS: LevETIRAcetam 500 MG in DEXTROSE 5%-WATER 100 ML IV SCH ×2 (01:30→15:02)
[2017-07-31 02:17] LABS: GLUCOSE COMMENT 1 Juice/Food/D50 Given; GLUCOSE,POINT OF CARE 103 MG/DL (70-110)
[2017-07-31] MEDS: PIPERACILLIN/TAZO 3.375 GM/D5W 50 ML IV SCH ×4 (02:46→20:43)
[2017-07-31] MEDS: MORPHINE SULFATE 2 MG/ML SYRINGE IVP PRN ×2 (03:40→12:53)
[2017-07-31 04:10] VITALS: BP 129/72
[2017-07-31 07:23] LABS: GLUCOSE COMMENT 1 Juice/Food/D50 Given; GLUCOSE,POINT OF CARE 130 MG/DL (70-110)
[2017-07-31 07:55] VITALS: BP 133/82
[2017-07-31] MEDS: PANTOPRAZOLE SODIUM 40 MG/VIAL IVP SCH (08:31)
[2017-07-31] MEDS: DOCUSATE SODIUM 100 MG CAPSULE PO SCH ×2 (08:31→21:00)
[2017-07-31] MEDS: SERTRALINE HCL 50 MG TABLET PO SCH (10:16)
[2017-07-31] MEDS: MINERAL OIL/PETROLATUM,WHITE PF 3.5 GM OPHTHALMIC OINTMENT OS SCH ×3 (10:16→20:43)
[2017-07-31 12:04] LABS: GLUCOSE,POINT OF CARE 102 MG/DL (70-110)
[2017-07-31 15:37] VITALS: BP 120/73
[2017-07-31] MEDS: HYDROCODONE/ACETAMINOPHEN 5-325 MG TABLET PO PRN ×2 (16:53→20:55)
[2017-07-31 19:28] VITALS: BP 120/70
[2017-07-31] MEDS: OXYGEN THERAPY IH SCH (20:00)
[2017-07-31 20:18] LABS: GLUCOSE,POINT OF CARE 111 MG/DL (70-110)
[2017-07-31] MEDS: TraZODone HCL 50 MG TABLET PO SCH (21:00)
[2017-07-31] MEDS: ONDANSETRON HCL 4 MG/2 ML VIAL IVP PRN (21:19)
[2017-08-01 00:14] VITALS: BP 124/71
[2017-08-01 01:08] LABS: GLUCOSE COMMENT 1 Juice/Food/D50 Given; GLUCOSE,POINT OF CARE 98 MG/DL (70-110)
[2017-08-01] MEDS: LevETIRAcetam 500 MG in DEXTROSE 5%-WATER 100 ML IV SCH ×2 (01:08→13:51)
[2017-08-01] MEDS: PIPERACILLIN/TAZO 3.375 GM/D5W 50 ML IV SCH ×3 (01:08→14:34)
[2017-08-01] MEDS: HEPARIN SODIUM,PORCINE 5,000 UNITS/ML VIAL SQ SCH ×3 (03:15→16:00)
[2017-08-01] MEDS: HYDROCODONE/ACETAMINOPHEN 5-325 MG TABLET PO PRN ×3 (03:19→16:51)
[2017-08-01 05:21] VITALS: BP 114/71
[2017-08-01 08:02] VITALS: BP 127/75
[2017-08-01] MEDS: OXYGEN THERAPY IH SCH (08:27)
[2017-08-01] MEDS: SERTRALINE HCL 50 MG TABLET PO SCH ×2 (08:27→08:32)
[2017-08-01] MEDS: PANTOPRAZOLE SODIUM 40 MG/VIAL IVP SCH (08:27)
[2017-08-01] MEDS: METOCLOPRAMIDE HCL 5 MG/ML 2 ML VIAL IVP SCH ×3 (08:27→12:00)
[2017-08-01] MEDS: BISACODYL 10 MG RECTAL RECTAL SUPPOSITORY PR SCH (08:28)
[2017-08-01] MEDS: MINERAL OIL/PETROLATUM,WHITE PF 3.5 GM OPHTHALMIC OINTMENT OS SCH ×2 (08:28→16:00)
[2017-08-01] MEDS: DOCUSATE SODIUM 100 MG CAPSULE PO SCH (08:28)
[2017-08-01 08:47] LABS: GLUCOSE COMMENT 1 Juice/Food/D50 Given; GLUCOSE,POINT OF CARE 136 MG/DL (70-110)
[2017-08-01 11:32] VITALS: BP 120/67
[2017-08-01 11:58] LABS: GLUCOSE,POINT OF CARE 103 MG/DL (70-110)
[2017-08-01] MEDS ORDERED: LEVE500T53 PO ×2 (14:18)
[2017-08-01] MEDS ORDERED: METR500 PO ×2 (14:19→14:20)
[2017-08-01] MEDS ORDERED: BISA5TAB12 PO (14:20)
[2017-08-01] MEDS ORDERED: BISA10S PR (14:22)
[2017-08-01] MEDS ORDERED: METO5TAB95 PO (14:23)
[2017-08-01 15:10] VITALS: BP 122/66
== END 2017-08-01 17:10 | disposition home or self-care (01) | DRG 228 ==
LOC: EDUNIT# 14:10 → EMS 14:11 → 4E 19:35 → 5N 07-24 15:30 → 6N 07-30 17:00
PROVIDERS: ADMIT Hospitalist; ATTEND Hospitalist
PROC: 0WUF4JZ Supplement Abdominal Wall with Synthetic Substitute, Percutaneous Endoscopic Approach (ICD-10-PCS; principal; 2017-07-23)
PROC: 0WJG4ZZ Inspection of Peritoneal Cavity, Percutaneous Endoscopic Approach (ICD-10-PCS; 2017-07-23)
DX: K42.0 Umbilical hernia with obstruction, without gangrene (principal); F33.2 Major depressive disorder, recurrent severe without psychotic features; R56.9 Unspecified convulsions; K56.7 Ileus, unspecified; I10 Essential (primary) hypertension; E11.9 Type 2 diabetes mellitus without complications; D72.829 Elevated white blood cell count, unspecified; K91.89 Other postprocedural complications and disorders of digestive system; K43.6 Other and unspecified ventral hernia with obstruction, without gangrene; E87.6 Hypokalemia; H40.9 Unspecified glaucoma; K21.9 Gastro-esophageal reflux disease without esophagitis; K66.0 Peritoneal adhesions (postprocedural) (postinfection); R33.9 Retention of urine, unspecified; Z53.20 Procedure and treatment not carried out because of patient's decision for unspecified reasons; Z86.718 Personal history of other venous thrombosis and embolism; Z87.891 Personal history of nicotine dependence; Z88.8 Allergy status to other drugs, medicaments and biological substances; Z91.02 Food additives allergy status; Z91.011 Allergy to milk products; Z22.322 Carrier or suspected carrier of Methicillin resistant Staphylococcus aureus; Z28.21 Immunization not carried out because of patient refusal
CPT/HCPCS: 74000; 74022; 74176; 82805; 82962; 83605; 86850; 86900; 86901; 87081; 88304; 90471; 93970; 94640; 96374; 96375; 96376; 97110; 97162; 97166; 97530; 97535; 99285; C9113; G0238; J0712; J1644; J1885; J2250; J2270; J2405; J2543; J2704; J2765; J3010; J3480; J3490; J7030; J7050; J7060; J7120

== ENCOUNTER 2017-08-07 03:12 | Emergency (ER) | payer OTHER ==
[~2017-08-07] VITALS: Ht 154.9 cm; Wt 91.1 kg
[~2017-08-07 03:12] MED LIST changes: +BISA10S PR; +KETO5DRO6 OS; +LEVE500T53 PO; +METO5TAB95 PO; +METR500 PO; -RIVA15T PO; +[UNRECOGNIZED DRUG - CODE] OS
[2017-08-07] MEDS ORDERED: SODIUM CHLORIDE 0.9% 1,000 ML IV ONE ×2 (04:00→08:30)
[2017-08-07] MEDS ORDERED: HYDROmorphone 2 MG/ML SYRINGE IVP ONE (04:00)
[2017-08-07] MEDS ORDERED: ONDANSETRON HCL 4 MG/2 ML VIAL IVP ONE (04:00)
[2017-08-07] MEDS ORDERED: BARIUM SULFATE 0.1% SUSPENSION 450 ML BOTTLE PO ONE (04:00)
[2017-08-07] MEDS ORDERED: IOVERSOL 320 MG/ML 100 ML VIAL ONE (05:31)
[2017-08-07 05:52] LABS: BASOPHILS % (AUTO) 0.1 % (0.0-2.0); EOSINOPHILS % (AUTO) 0.9 % (1.0-6.0); HEMATOCRIT 35.6 % (36-46); HEMOGLOBIN 11.7 g/dL (12.0-16.0); LYMPHOCYTES # (AUTO) 1.9 K/uL (1.0-4.8); LYMPHOCYTES % (AUTO) 9.6 % (22.0-44.0); MEAN CORPUSCULAR HEMOGLOBIN 28.5 pg (26.0-34.0); MEAN CORPUSCULAR VOLUME 86 fL (80-100); MONOCYTES # (AUTO) 0.9 K/uL (0.1-1.0); MONOCYTES % (AUTO) 4.3 % (2.0-9.0); NEUTROPHILS # (AUTO) 17.2 K/uL (1.8-7.7); NEUTROPHILS % (AUTO) 85.1 % (40.0-70.0); RED BLOOD CELL COUNT(AUTO) 4.12 MIL/uL (4.00-5.20)
[2017-08-07 05:53] LABS: WHITE BLOOD COUNT (AUTO) 23.2 K/uL (4.5-11.0)
[2017-08-07 05:57] LABS: ANION GAP 7 mmol/L (8-16); CALCIUM, TOTAL 7.6 mg/dL (8.8-10.5); CARBON DIOXIDE 26 mmol/L (22-29); CHLORIDE 109 mmol/L (98-107); CREATININE 0.58 mg/dL (0.60-1.30); GLOMERULAR FILTR. RATE CALC > 60 mL/min (>60); POTASSIUM 3.7 mmol/L (3.5-5.1); SODIUM SERUM 142 mmol/L (136-145); UREA NITROGEN, BLOOD 9 mg/dL (7-18)
[2017-08-07 06:01] LABS: APPEARANCE,URINE CLEAR (CLEAR); GLUCOSE, URINE (UA) NEGATIVE (NEGATIVE); KETONES,URINE NEGATIVE (NEGATIVE); LEUKOCYTE ESTERASE ,URINE NEGATIVE (NEGATIVE); OCCULT BLOOD,URINE NEGATIVE (NEGATIVE); PH,URINE 5.5 (5.0-8.0); PROTEIN,URINE TRACE (NEGATIVE)
[2017-08-07 06:02] LABS: ALANINE AMINOTRANSFERASE 136 U/L (12-78); ALBUMIN 2.6 g/dL (3.4-5.0); ASPARTATE AMINOTRANSFERASE 52 U/L (15-37); BILIRUBIN,TOTAL 0.2 mg/dL (0.1-1.0); TOTAL PROTEIN, SERUM 6.3 g/dL (6.4-8.2)
[2017-08-07 06:09] LABS: LACTIC ACID 0.5 mmol/L (0.4-2.0)
[2017-08-07 06:29] LABS: PLATELET COUNT (AUTO) 362 K/uL (150-450)
[2017-08-07 06:38] LABS: RBC,URINE 0-2 /HPF (0-2); SQUAMOUS EPITHELIAL CELL,UR Rare /LPF (None Seen); WBC,URINE 0-2 /HPF (0-5)
[2017-08-07 07:55] VITALS: BP 122/70
[2017-08-07] MEDS ORDERED: 0.9% SODIUM CHLORIDE 10 ML SYRINGE IVP PRN (08:30)
[2017-08-07] MEDS ORDERED: ACETAMINOPHEN 325 MG TABLET PO PRN (08:30)
[2017-08-07] MEDS ORDERED: ONDANSETRON HCL 4 MG/2 ML VIAL IVP PRN (08:30)
== END 2017-08-07 12:23 | disposition left against medical advice (07) ==
LOC: EMS 03:14 → UNDOADMIN 08:54 → 4E 08:54 → EMS 12:23
DX: K56.609 Unspecified intestinal obstruction, unspecified as to partial versus complete obstruction (principal); E11.9 Type 2 diabetes mellitus without complications; K21.9 Gastro-esophageal reflux disease without esophagitis; I10 Essential (primary) hypertension; F17.210 Nicotine dependence, cigarettes, uncomplicated; Z91.011 Allergy to milk products; Z91.018 Allergy to other foods
CPT/HCPCS: 36415; 71010; 74177; 80053; 81001; 83605; 83690; 84484; 85025; 87324; 87449; 93005; 96361; 96374; 96375; 99285; J1170; J2405; J7030; Q9967; Z7610